=== PATIENT | female | born 2005 | race Caucasian/White ===

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

== ENCOUNTER 2025-04-08 17:50 | Outpatient (REF) | payer MEDICAID, SELFPAY ==
--- NOTE | 2025-04-08 13:15 | PAPFT_PTH ---
PATIENT: Meredith Sinclair LOC: [facility] U#:[id number] AGE/SX: 20/F ROOM: RE04/08/[address]: Savanna Packer : 2005 BED: DIS: 04/08/2025 SPEC #: [id number] RECD: 04/11/25 13:38 STATUS: MARTINA REDavion #: [id number] DRISS: 04/08/25 13:[address]: Savanna Packer DEPT: [facility] Cytology RECD BY: Leyla Jade Tissues: 1 - CX/ENDOCX FOR PAP SMEARS Procedures: PAP THIN PREP/UVM Screening Comments: [id number]
== END 2025-04-08 17:51 | disposition home or self-care (01) ==
LOC: NCHCN 17:50
PROVIDERS: PCP Nurse Practitioner Family; Visit Provider Nurse Practitioner Family
DX: Z12.4 Encounter for screening for malignant neoplasm of cervix (principal)
CPT/HCPCS: 88142